=== PATIENT | female | born 2000 | race Caucasian/White ===

== ENCOUNTER 2022-01-13 16:51 | Emergency (ER) | payer MEDICAID, SELFPAY ==
[2022-01-13 17:52] VITALS: BP 129/87; PULSE 110; RESP 20; TEMP 36.6; O2SAT 99
--- NOTE | 2022-01-13 19:32 | ED.GENADULT ---
HPI - General Adult General Chief complaint: Unspecified Stated complaint: difficulty swallowing food. Time Seen by Provider: 01/13/22 19:24 History of Present Illness HPI narrative: Patient states for past month has had sensation of food getting stuck in her throat, she went to see her doctor who gave her follow up to she believes a GI doctor and has an appointment next week. No issues swallowing liquids. Symptoms associated with some nausea/regurgitation. No chest pain. No difficulty breathing. Related Data Allergies Allergy/AdvReac Type Severity Reaction Status Date / Time No Known Allergies Allergy Verified 01/13/22 19:23 Review of Systems Review of Systems: CONST: No fever. HEENT: No sore throat C/V: No chest pain RESP: No cough GI: Occasional vomiting episodes and difficulty swallowing food : No dysuria. M/S: No joint pain. SKIN: No rash. NEURO: [No headache or focal numbness or weakness] PSYCH: [No depression] Exam Narrative: EXAMINATION OF ORGAN SYSTEMS/BODY AREAS: Constitutional: Vital signs per nursing GENERAL:[No acute distress, non-toxic appearing.] HEAD: Normal with no signs of head trauma. EYES: EOMI, conjunctiva normal ENT: No pharyngeal swelling or edema; normal voice LUNGS: Nonlabored breathing. HEART: [Regular rate and rhythm] ABD: No distension EXT: Normal range of motion SKIN: [No rashes.] NEURO: [Alert and oriented x 3. No gross focal sensory or strength deficits.] PSYCH: Normal affect Course Vital Signs Vital signs: Vital Signs Temperature 97.9 F 01/13/22 17:52 Pulse Rate 110 H 01/13/22 17:52 Respiratory Rate 20 01/13/22 17:52 Blood Pressure 129/87 01/13/22 17:52 Pulse Oximetry 99 01/13/22 17:52 Oxygen Delivery Room Air 01/13/22 17:52 Temperature 97.9 F 01/13/22 17:52 Pulse Rate 110 H 01/13/22 17:52 Respiratory Rate 20 01/13/22 17:52 Blood Pressure 129/87 01/13/22 17:52 Pulse Oximetry 99 01/13/22 17:52 Oxygen Delivery Room Air 01/13/22 17:52 Medical Decision Making [facility] Narrative Medical decision making narrative: This 21-year-old female presents with difficulty swallowing food for the last few months; vital signs notable for minimal tachycardia initially at triage; normal ENT exam and normal voice. I did explain to her that she would likely benefit from additional studies such as barium swallow and possible direct laryngoscopy with specialists which we were unable to obtain at this time in the emergency room, however as her symptoms have been stable for the last few months I do not feel she needs emergent work-up at this time. She is able to tolerate p.o. here, drink fluids and take pills without issues, and I will give her follow-up to ENT and GI. She is cautioned to return if she has difficulty tolerating p.o. Or if she has any worsening symptoms. Vital Signs Vital Signs: Vital Signs Temperature 97.9 F 01/13/22 17:52 Pulse Rate 110 H 01/13/22 17:52 Respiratory Rate 20 01/13/22 17:52 Blood Pressure 129/87 01/13/22 17:52 Pulse Oximetry 99 01/13/22 17:52 Oxygen Delivery Room Air 01/13/22 17:52 Temperature 97.9 F 01/13/22 17:52 Pulse Rate 110 H 01/13/22 17:52 Respiratory Rate 20 01/13/22 17:52 Blood Pressure 129/87 01/13/22 17:52 Pulse Oximetry 99 01/13/22 17:52 Oxygen Delivery Room Air 01/13/22 17:52 Discharge Plan Discharge Clinical Impression: Dysphagia Patient Disposition: Home, Self-Care Condition: Stable Instructions: Antibiotic Form, Dysphagia (ED) Additional Instructions: Please follow up with the GI doctor and the ENT surgeon as soon as possible; try the new medications you are prescribed, and if you are unable to even keep any liquids down, you can always come back to the ER. Prescriptions: New famotidine 20 mg tablet 20 mg PO DAILY Qty: 30 0RF Follow-up/Referrals: Bhavesh Goss MD [Physician] - 2 Days Esteban Hugo MD [Physician] - 2 Days PHYS
[2022-01-13] MEDS: FAMOTIDINE 20 MG TABLET PO (19:44)
[2022-01-13 20:18] VITALS: PULSE 63; RESP 19; O2SAT 100
--- NOTE | 2022-01-13 20:25 | ED.GENADULT ---
HPI - General Adult General Chief complaint: Unspecified Stated complaint: difficulty swallowing food. Time Seen by Provider: 01/13/22 19:24 History of Present Illness HPI narrative: 21-year-old female with several month history of difficulty swallowing food, had been to her doctor we gave her a GI referral, she will be seeing them next week. She occasionally has some mild shortness of breath and nausea and throws up when she is having the symptoms Related Data Allergies Allergy/AdvReac Type Severity Reaction Status Date / Time No Known Allergies Allergy Verified 01/13/22 19:23 Review of Systems Review of Systems: CONST: No fever. HEENT: difficulty swallowing food; No new voice changes C/V: No chest pain RESP: No cough GI: Nausea : No dysuria. M/S: No joint pain. SKIN: No rash. NEURO: [No headache or focal numbness or weakness] PSYCH: [No depression] Exam Narrative: EXAMINATION OF ORGAN SYSTEMS/BODY AREAS: Constitutional: Vital signs per nursing GENERAL:[No acute distress, non-toxic appearing.] HEAD: Normal with no signs of head trauma. EYES: EOMI, conjunctiva normal ENT: Normal voice, no trismus, no throat swelling or pharyngeal erythema or edema LUNGS: Nonlabored breathing. HEART: Initially tachycardic at triage then normal VS ABD: No distension EXT: Normal range of motion SKIN: [No rashes or lesions.] NEURO: [Alert and oriented x 3. No gross focal sensory or strength deficits.] PSYCH: Normal affect Course Vital Signs Vital signs: Vital Signs Temperature 97.9 F 01/13/22 17:52 Pulse Rate 110 H 01/13/22 17:52 Respiratory Rate 20 01/13/22 17:52 Blood Pressure 129/87 01/13/22 17:52 Pulse Oximetry 99 01/13/22 17:52 Oxygen Delivery Room Air 01/13/22 17:52 Temperature 97.9 F 01/13/22 17:52 Pulse Rate 63 01/13/22 20:18 Respiratory Rate 19 01/13/22 20:18 Blood Pressure 129/87 01/13/22 17:52 Pulse Oximetry 100 01/13/22 20:18 Oxygen Delivery Room Air 01/13/22 17:52 Medical Decision Making Vital Signs Vital Signs: Vital Signs Temperature 97.9 F 01/13/22 17:52 Pulse Rate 110 H 01/13/22 17:52 Respiratory Rate 20 01/13/22 17:52 Blood Pressure 129/87 01/13/22 17:52 Pulse Oximetry 99 01/13/22 17:52 Oxygen Delivery Room Air 01/13/22 17:52 Temperature 97.9 F 01/13/22 17:52 Pulse Rate 63 01/13/22 20:18 Respiratory Rate 19 01/13/22 20:18 Blood Pressure 129/87 01/13/22 17:52 Pulse Oximetry 100 01/13/22 20:18 Oxygen Delivery Room Air 01/13/22 17:52 Discharge Plan Discharge Clinical Impression: Dysphagia Patient Disposition: Home, Self-Care Condition: Stable Instructions: Antibiotic Form, Dysphagia (ED) Additional Instructions: Please follow up with the GI doctor and the ENT surgeon as soon as possible; try the new medications you are prescribed, and if you are unable to even keep any liquids down, you can always come back to the ER. Prescriptions: New famotidine 20 mg tablet 20 mg PO DAILY Qty: 30 0RF Follow-up/Referrals: Bhavesh Goss MD [Physician] - 2 Days Esteban Hugo MD [Physician] - 2 Days PHYSICIAN NOT ON STAFF,NONSTAFF [Primary Care Provider] -
== END 2022-01-13 20:33 | disposition home or self-care (01) ==
LOC: ANHED 20:05
PROVIDERS: Emergency Provider Emergency Medicine
DX: R13.10 Dysphagia, unspecified (principal)
CPT/HCPCS: 99283; A9270